=== PATIENT | male | born 1980 | race Caucasian/White ===

== ENCOUNTER 2018-06-24 20:42 | Emergency (ER) | payer OTHER ==
[~2018-06-24] VITALS: Ht 167.6 cm; Wt 104.4 kg
[2018-06-24 20:53] VITALS: Ht 167.6 cm; Wt 104.4 kg
== END 2018-06-24 22:10 | disposition left against medical advice (07) ==
LOC: FTE 20:42
DX: Z53.21 Procedure and treatment not carried out due to patient leaving prior to being seen by health care provider (principal)